=== PATIENT | female | born 1995 | race African-American/Black ===

== ENCOUNTER 2017-02-05 11:40 | Emergency (ER) | payer SELFPAY ==
[~2017-02-05] VITALS: Ht 162.6 cm; Wt 78.4 kg
[~2017-02-05 11:40] MED LIST: AUGMENTIN500TAB PO; BACTRIM DS1 TAB PO; CEPHALEXIN500 MG PO; FAMOTIDINE20 M1 PO; FEOSOL45 MG PO; FERR SULFATE325 MG PO; IBUPROFEN600 MG PO; KEFLEX500 M1 PO; KEFLEX500 MG PO; MACRODANTIN100 MG PO; NO; NO HOME MEDS; PRENATAL1 TA1; PRENATAL1 TA1 PO; PROMETHAZINE25 MG OR; ROBITUSSIN AC10 ML PO; TRIAMINI4 OR; ULTRAM50 M1 PO; VALTREX1 GM PO
[2017-02-05 12:58] LABS: HEMATOCRIT 34.8 % (37.0-47.0); HEMOGLOBIN 11.6 g/dl (12.0-16.0); IMMATURE GRANULOCYTES 0.2 % (0.0-1.0); MEAN CELL VOLUME 81.5 fL CALC (80.0-100.0); MEAN CORPUSCULAR HGB 27.2 pG CALC (26.0-32.0); MEAN CORPUSCULAR HGB CONC 33.3 g/L CALC (32.0-36.0); NEUT# 3.37 thou/uL (2.00-7.15); RED BLOOD COUNT 4.27 mill/uL (4.20-5.60); RED CELL DISTRI WIDTH 14.1 % (11.5-15.5)
[2017-02-05 12:59] LABS: URINE BILIRUBIN - DIPSTICK NEGATIVE (NEGATIVE); URINE BLOOD DIPSTICK NEGATIVE (NEGATIVE); URINE COLOR YELLOW; URINE GLUCOSE - DIPSTICK NEGATIVE (NEGATIVE); URINE KETONE NEGATIVE (NEGATIVE); URINE NITRITE - DIPSTICK NEGATIVE (Negative); URINE PH 5.5 (4.5-8.0); URINE PROTEIN - DIPSTICK NEGATIVE (NEG-TRACE); URINE SPECIFIC GRAVITY 1.025; URINE UROBILINOGEN - DIPSTICK 0.2 E.U./dL (0.2)
[2017-02-05 13:07] LABS: URINE CLARITY CLOUDY; URINE LEUK ESTERASE LARGE (NEGATIVE)
[2017-02-05 13:15] LABS: URINE BACTERIA FEW hpf; URINE SQUAMOUS EPITHELIAL CELL FEW EPI/hpf (0-FEW); URINE WBC 20-50 WBC/hpf (0-5)
[2017-02-05 13:22] LABS: ALBUMIN 4.4 g/dL (3.2-5.0); ALKALINE PHOSPHATASE 112 u/l (38-126); ANION GAP 17 (6-22 (CALC)); BILIRUBIN, TOTAL 0.5 mg/dL (0.0-1.4); BUN 11 mg/dL (7-17); BUN/CREATININE RATIO 14 (12-20 (CALC)); CALCIUM 9.7 mg/dL (8.4-10.2); CARBON DIOXIDE 24 mmol/l (22-30); CHLORIDE 104 mmol/l (95-108); CREATININE 0.8 mg/dL (0.5-1.0); GFR > 60 ML/MIN (>=60 (CALC)); GFR FOR AFR.AMER. > 60 ML/MIN (>=60 (CALC)); GLUCOSE 78 mg/dL (65-105); POTASSIUM 4.2 mmol/l (3.5-5.1); SGOT/AST 23 u/l (14-36); SGPT/ALT 28 u/l (9-52); SODIUM 141 mmol/l (137-146); TOTAL PROTEIN 7.7 g/dL (6.3-8.2)
[2017-02-05] MEDS ORDERED: ZOFRAN ODT4 MG PO (13:43)
[2017-02-05] MEDS ORDERED: CIPROFLOXACN500 MG PO (13:43)
[2017-02-05] MEDS ORDERED: ANTIVERT PO (13:43)
[2017-02-05 14:01] VITALS: BP 123/80
== END 2017-02-05 14:01 | disposition home or self-care (01) | DRG 149 ==
LOC: ED 11:40
PROVIDERS: Emergency Medicine
DX: R42 Dizziness and giddiness (principal); N39.0 Urinary tract infection, site not specified; R51 Headache

== ENCOUNTER 2017-04-25 10:32 | Emergency (ER) | payer SELFPAY ==
[~2017-04-25] VITALS: Ht 162.6 cm; Wt 77.3 kg
[~2017-04-25 10:32] MED LIST changes: +ANTIVERT PO; +CIPROFLOXACN500 MG PO; +ZOFRAN ODT4 MG PO
[2017-04-25 11:22] LABS: HEMATOCRIT 36.9 % (37.0-47.0); HEMOGLOBIN 12.2 g/dl (12.0-16.0); IMMATURE GRANULOCYTES 0.3 % (0.0-1.0); MEAN CELL VOLUME 81.5 fL CALC (80.0-100.0); MEAN CORPUSCULAR HGB 26.9 pG CALC (26.0-32.0); MEAN CORPUSCULAR HGB CONC 33.1 g/L CALC (32.0-36.0); NEUT# 5.06 thou/uL (2.00-7.15); RED BLOOD COUNT 4.53 mill/uL (4.20-5.60); RED CELL DISTRI WIDTH 14.5 % (11.5-15.5); URINE BILIRUBIN - DIPSTICK NEGATIVE (NEGATIVE); URINE BLOOD DIPSTICK LARGE (NEGATIVE); URINE COLOR YELLOW; URINE GLUCOSE - DIPSTICK NEGATIVE (NEGATIVE); URINE KETONE NEGATIVE (NEGATIVE); URINE LEUK ESTERASE TRACE (NEGATIVE); URINE NITRITE - DIPSTICK NEGATIVE (Negative); URINE PH 5.5 (4.5-8.0); URINE PROTEIN - DIPSTICK NEGATIVE (NEG-TRACE); URINE UROBILINOGEN - DIPSTICK 0.2 E.U./dL (0.2)
[2017-04-25 11:26] LABS: URINE CLARITY HAZY; URINE EPITHELIAL CELLS MODERATE EPI/hpf (0-FEW); URINE RBC 25-50 RBC/hpf (0-5); URINE WBC 0-2 WBC/hpf (0-5)
[2017-04-25 11:31] LABS: ALBUMIN 4.7 g/dL (3.2-5.0); ALKALINE PHOSPHATASE 109 u/l (38-126); AMYLASE 67 u/l (30-110); ANION GAP 16 (6-22 (CALC)); BILIRUBIN, TOTAL 0.7 mg/dL (0.0-1.4); BUN 9 mg/dL (7-17); BUN/CREATININE RATIO 13 (12-20 (CALC)); CARBON DIOXIDE 25 mmol/l (22-30); CHLORIDE 104 mmol/l (95-108); CREATININE 0.8 mg/dL (0.5-1.0); GFR > 60 ML/MIN (>=60 (CALC)); GFR FOR AFR.AMER. > 60 ML/MIN (>=60 (CALC)); GLUCOSE 81 mg/dL (65-105); LIPASE 75 u/l (23-300); POTASSIUM 3.9 mmol/l (3.5-5.1); SGOT/AST 24 u/l (14-36); SGPT/ALT 35 u/l (9-52); SODIUM 142 mmol/l (137-146); TOTAL PROTEIN 8.1 g/dL (6.3-8.2)
[2017-04-25] MEDS ORDERED: ZOFRAN4 MG/TAB PO (12:18)
[2017-04-25 12:38] VITALS: BP 132/68
== END 2017-04-25 12:38 | disposition home or self-care (01) | DRG 392 ==
LOC: ED 10:32
PROVIDERS: Emergency Medicine
DX: R11.0 Nausea (principal); R42 Dizziness and giddiness

== ENCOUNTER 2017-08-28 05:17 | Emergency (ER) | payer SELFPAY ==
[~2017-08-28] VITALS: Ht 162.6 cm; Wt 69.8 kg
[~2017-08-28 05:17] MED LIST changes: +ZOFRAN4 MG/TAB PO
[2017-08-28 07:12] LABS: INFLUENZA A POSITIVE (NONE DETECT); INFLUENZA B POSITIVE (NONE DETECT)
[2017-08-28] MEDS ORDERED: CODEINE/GUAIFEN1 SOL PO (07:22)
[2017-08-28] MEDS ORDERED: AMOXICILLIN500 MG PO (07:22)
[2017-08-28 07:55] VITALS: BP 112/82
== END 2017-08-28 07:55 | disposition home or self-care (01) | DRG 153 ==
LOC: ED 05:17
PROVIDERS: Emergency Medicine
DX: J02.0 Streptococcal pharyngitis (principal); J40 Bronchitis, not specified as acute or chronic; R50.9 Fever, unspecified; R09.89 Other specified symptoms and signs involving the circulatory and respiratory systems; R05 Cough; R07.81 Pleurodynia

== ENCOUNTER 2017-09-21 14:39 | Emergency (ER) | payer SELFPAY ==
[~2017-09-21] VITALS: Ht 162.6 cm; Wt 72.4 kg
[~2017-09-21 14:39] MED LIST changes: +AMOXICILLIN500 MG PO; +CODEINE/GUAIFEN1 SOL PO
[2017-09-21 16:25] VITALS: BP 138/80
== END 2017-09-21 16:25 | disposition home or self-care (01) | DRG 761 ==
LOC: ED 14:39
DX: N92.6 Irregular menstruation, unspecified (principal)

== ENCOUNTER 2017-11-07 06:50 | Emergency (ER) | payer OTHER ==
[~2017-11-07] VITALS: Ht 162.6 cm; Wt 80.0 kg
[2017-11-07 07:19] VITALS: BP 143/93
== END 2017-11-07 07:25 | disposition home or self-care (01) | DRG 556 ==
LOC: ED 06:50
DX: M25.512 Pain in left shoulder (principal)

== ENCOUNTER 2017-11-22 09:40 | Emergency (ER) | payer OTHER ==
[~2017-11-22] VITALS: Ht 162.6 cm; Wt 74.0 kg
[2017-11-22] MEDS ORDERED: CEPHALEXIN500 M1 PO (09:53)
[2017-11-22] MEDS ORDERED: MUPIROCIN2 % EX (09:53)
[2017-11-22 09:55] VITALS: BP 121/77
== END 2017-11-22 10:06 | disposition home or self-care (01) | DRG 605 ==
LOC: ED 09:40
DX: S80.211A Abrasion, right knee, initial encounter (principal); L03.115 Cellulitis of right lower limb; M25.461 Effusion, right knee; W18.30XA Fall on same level, unspecified, initial encounter; Y93.01 Activity, walking, marching and hiking; Y92.007 Garden or yard of unspecified non-institutional (private) residence as the place of occurrence of the external cause; Z33.1 Pregnant state, incidental

== ENCOUNTER 2018-02-20 13:27 | Emergency (ER) | payer OTHER ==
[~2018-02-20] VITALS: Ht 162.6 cm; Wt 70.0 kg
[~2018-02-20 13:27] MED LIST changes: +CEPHALEXIN500 M1 PO; +MUPIROCIN2 % EX
[2018-02-20 14:33] LABS: HEMATOCRIT 32.4 % (37.0-47.0); HEMOGLOBIN 10.8 g/dl (12.0-16.0); IMMATURE GRANULOCYTES 0.6 % (0.0-1.0); MEAN CELL VOLUME 85.5 fL CALC (80.0-100.0); MEAN CORPUSCULAR HGB 28.5 pG CALC (26.0-32.0); MEAN CORPUSCULAR HGB CONC 33.3 g/L CALC (32.0-36.0); NEUT# 8.27 thou/uL (2.00-7.15); RED BLOOD COUNT 3.79 mill/uL (4.20-5.60); RED CELL DISTRI WIDTH 12.9 % (11.5-15.5)
[2018-02-20 14:35] LABS: URINE BILIRUBIN - DIPSTICK NEGATIVE (NEGATIVE); URINE BLOOD DIPSTICK NEGATIVE (NEGATIVE); URINE COLOR YELLOW; URINE GLUCOSE - DIPSTICK NEGATIVE (NEGATIVE); URINE KETONE NEGATIVE (NEGATIVE); URINE NITRITE - DIPSTICK NEGATIVE (Negative); URINE PH 5.5 (4.5-8.0); URINE PROTEIN - DIPSTICK NEGATIVE (NEG-TRACE); URINE UROBILINOGEN - DIPSTICK 0.2 E.U./dL (0.2)
[2018-02-20 14:36] LABS: URINE LEUK ESTERASE MODERATE (NEGATIVE)
[2018-02-20 14:37] LABS: URINE CLARITY CLOUDY
[2018-02-20 14:42] LABS: ALKALINE PHOSPHATASE 101 u/l (38-126); BILIRUBIN, TOTAL 0.3 mg/dL (0.0-1.4); BUN 8 mg/dL (7-17); BUN/CREATININE RATIO 13 (12-20 (CALC)); CARBON DIOXIDE 21 mmol/l (22-30); CHLORIDE 102 mmol/l (95-108); CREATININE 0.6 mg/dL (0.5-1.0); GFR > 60 ML/MIN (>=60 (CALC)); GFR FOR AFR.AMER. > 60 ML/MIN (>=60 (CALC)); POTASSIUM 3.9 mmol/l (3.5-5.1); SGOT/AST 16 u/l (14-36); SGPT/ALT 30 u/l (9-52); TOTAL PROTEIN 6.7 g/dL (6.3-8.2)
[2018-02-20 14:42] LABS: BARBITURATES NEGATIVE (NEGATIVE); COCAINE NEGATIVE (NEGATIVE); METHADONE NEGATIVE (NEGATIVE); OXCYCODONE NEGATIVE (NEGATIVE); TETRAHYDROCANNABIONOL NEGATIVE (NEGATIVE); TRICYLIC ANTIDEPRESSANTS NEGATIVE (NEGATIVE)
[2018-02-20 14:43] LABS: ALBUMIN 3.4 g/dL (3.2-5.0); ANION GAP 12 (6-22 (CALC)); SODIUM 131 mmol/l (137-146)
[2018-02-20 14:46] LABS: URINE BACTERIA RARE hpf; URINE WBC 20-50 WBC/hpf (0-5)
[2018-02-20 14:47] LABS: URINE SQUAMOUS EPITHELIAL CELL MODERATE EPI/hpf (0-FEW)
[2018-02-20] MEDS ORDERED: MACROBID100 MG PO (15:04)
[2018-02-20 15:09] VITALS: BP 117/63
== END 2018-02-20 15:18 | disposition home or self-care (01) | DRG 781 ==
LOC: ED 13:27
PROVIDERS: Emergency Medicine
DX: O26.892 Other specified pregnancy related conditions, second trimester (principal); R55 Syncope and collapse; R19.7 Diarrhea, unspecified; Z3A.16 16 weeks gestation of pregnancy

== ENCOUNTER 2018-04-20 18:16 | Emergency (ER) | payer OTHER ==
[~2018-04-20] VITALS: Ht 162.6 cm; Wt 78.6 kg
[~2018-04-20 18:16] MED LIST changes: +MACROBID100 MG PO
[2018-04-20 18:20] VITALS: BP 129/92
== END 2018-04-20 19:10 | disposition home or self-care (01) ==
LOC: ED 18:16
DX: O47.03 False labor before 37 completed weeks of gestation, third trimester (principal); Z3A.34 34 weeks gestation of pregnancy